=== PATIENT | male | born 1965 | race Caucasian/White ===

== ENCOUNTER → 2020-03-26 | Outpatient (CLI) | payer OTHER ==
[~2020-03-26] MED LIST: NOHOMEMEDICATIONS; PERCOCET 5-3251 EACH PO; PROTONIX40 MG PO
--- NOTE | 2020-03-26 11:50 | NUR ---
PT HERE FOR ACTH STIM TEST. TEST EXPLAINED TO HIM--WHAT TO EXPECT TODAY, WHEN RESULTS WILL BE BACK, WHAT THE DOCTOR IS LOOKING FOR. SALINE LOCK PLACED, BASELINE LAB DRAWN, COSYNTRIPIN ADMINISTERED THE 30 AND 60 MIN POST LEVELS DRAWN PER PERIPHERAL LINE. SL REMOVED AND PT DISMISSED UPON CONCLUSION OF THE TEST.
[2020-03-27 00:06] LABS: CORTISOL 60 MIN 31.5 ug/dL (Not Estab.); CORTISOL BASELINE 14.2 ug/dL (())
== END ==
LOC: OPONC 09:55
PROVIDERS: ATTEND Internal Medicine
DX: E27.40 Unspecified adrenocortical insufficiency (principal)
CPT/HCPCS: 95113